=== PATIENT | male | born 1960 | race Caucasian/White ===

== ENCOUNTER → 2016-10-14 | Day surgery (SDC) | payer BC ==
[~2016-10-14] MED LIST: ALPRAZolam 0.25 MG TAB PO PRN; ALPRAZolam 0.5 MG TAB PO PRN; ASPIRIN 325 MG TAB PO STA; ATORVASTATIN 80 MG TAB PO STA; NITROGLYCERIN SL TABS 0.4 MG TAB SUBLINGUAL PRN; SODIUM CHLORIDE 0.9% 1,000 ML in EMPTY BAG 1 BAG IV ONE
== END | disposition home or self-care (01) ==
LOC: CATHCVL 06:39
PROVIDERS: ATTEND Internal Medicine Interventional Cardiology
DX: I25.10 Atherosclerotic heart disease of native coronary artery without angina pectoris (principal); Z53.8 Procedure and treatment not carried out for other reasons; E78.5 Hyperlipidemia, unspecified; I10 Essential (primary) hypertension; F32.9 Major depressive disorder, single episode, unspecified; E78.00 Pure hypercholesterolemia, unspecified; Z79.02 Long term (current) use of antithrombotics/antiplatelets; Z79.82 Long term (current) use of aspirin; Z79.899 Other long term (current) drug therapy; Z82.49 Family history of ischemic heart disease and other diseases of the circulatory system; Z88.2 Allergy status to sulfonamides; Z95.1 Presence of aortocoronary bypass graft

== ENCOUNTER 2016-10-25 10:04 | Day surgery (SDC) | payer BC ==
[~2016-10-25 10:04] MED LIST changes: -ALPRAZolam 0.25 MG TAB PO PRN; -ALPRAZolam 0.5 MG TAB PO PRN; -NITROGLYCERIN SL TABS 0.4 MG TAB SUBLINGUAL PRN
[2016-10-25 10:40] LABS: Basophils % (A) 1 %; CH 29.4; CHCM 33.8; Eosinophils # (A) 0.3 k/uL (0-0.7); Eosinophils % (A) 4 %; HCT 47.7 % (39.0-53.0); HDW 2.88; HGB 15.7 gm/dL (13.0-17.5); Luc # (Auto) 0.24; Luc % (Auto) 3; Lymphocytes # (A) 2.4 k/uL (1.0-4.8); Lymphocytes % (A) 27 %; MCH 28.6 pg (25.0-35.0); MCHC 32.8 g/dL (31.0-37.0); MCV 87.1 fL (80.0-100.0); Mean Platelet Volume 6.5; Monocytes # (A) 0.6 k/uL (0-1.0); Monocytes % (A) 7 %; Neutrophils # (A) 5.3 k/uL (1.3-7.7); Neutrophils % (A) 60 %; RBC 5.48 m/uL (4.30-5.90); RDW 14.4 % (11.5-15.5); WBC 8.9 k/uL (3.8-10.6); WBC (Perox) 8.97
[2016-10-25 10:54] LABS: Anion Gap 12 mmol/L; Blood Urea Nitrogen 14 mg/dL (9-20); Calcium 9.2 mg/dL (8.4-10.2); Carbon Dioxide 20 mmol/L (22-30); Chloride 113 mmol/L (98-107); Glucose 78 mg/dL (74-99); Non-African American GFR(MDRD) >60 (>60 ml/min/1.73 sqM); Potassium 4.6 mmol/L (3.5-5.1); Sodium 145 mmol/L (137-145)
[2016-10-25] MEDS ORDERED: LIDOCAINE 2% INJ 20 MG/ML (20 ML MDV) ONE (11:29)
[2016-10-25] MEDS ORDERED: MIDAZOLAM 2 MG/2 ML VIAL ONE (11:34)
[2016-10-25] MEDS ORDERED: MIDAZOLAM 2 MG/2 ML VIAL IVP ONE (11:41)
[2016-10-25] MEDS ORDERED: LIDOCAINE 2% INJ 20 MG/ML SQ ONE (11:42)
[2016-10-25] MEDS ORDERED: BIVALIRUDIN BOLUS 250 MG/50 ML IV ONE (12:16)
[2016-10-25] MEDS ORDERED: niCARdipine 25 MG/10 ML VIAL ONE (12:17)
[2016-10-25] MEDS ORDERED: SODIUM CHLORIDE 0.9% (PF) 10 ML VIAL ONE (12:17)
[2016-10-25] MEDS ORDERED: BIVALIRUDIN 250 MG in SODIUM CHLORIDE 0.9% 50 ML IV ONE (12:17)
[2016-10-25] MEDS: niCARdipine Syringe (1,000 mcg/10 mL) INTRACORON ONE ×3 (12:19→12:32)
[2016-10-25] MEDS: NITROGLYCERIN 1000MCG/10ML SYRINGE INTRACORON ONE ×2 (12:19→12:31)
[2016-10-25] MEDS ORDERED: IOHEXOL 350 MG/ML 100 ML BOTTLE INJ ONE (12:35)
[2016-10-25] MEDS ORDERED: CLOPIDOGREL 75 MG TAB ONE (12:36)
[2016-10-25] MEDS ORDERED: CLOPIDOGREL 75 MG TAB PO ONE (12:39)
[2016-10-25] MEDS ORDERED: ZOLPIDEM 5 MG TAB PO PRN (12:45)
[2016-10-25] MEDS ORDERED: SODIUM CHLORIDE 0.9% 1,000 ML IV SCH (12:45)
[2016-10-25] MEDS ORDERED: ATROPINE SULFATE 0.1 MG/ML 10ML SYRINGE IV PRN (12:45)
[2016-10-25] MEDS ORDERED: NITROGLYCERIN SL TABS 0.4 MG TAB SUBLINGUAL PRN (12:45)
[2016-10-25] MEDS ORDERED: RX INFO: IV CONTRAST WAS GIVEN 1 EACH MISC MISCELLANE PRN (12:45)
[2016-10-25] MEDS ORDERED: MAG HYDROX/AL HYDROX/SIMETH 30 ML CUP PO PRN (12:45)
[2016-10-25 15:37] VITALS: BMI 29.1
--- NOTE | 2016-10-25 19:15 | CC ---
DATE OF SERVICE: October 25, 2016. Performing physician: Jung Byrne M.D., parts processor. PROCEDURE PERFORMED: 1. Selective left and right coronary angiogram. 2. SVG angiogram x3 as it will described later in this report. 3. Left internal mammary artery angiogram. 4. Right internal mammary artery angiogram. 5. Successful stenting of the SVG to ramus intermedius using 4.0 x 26 mm Xience HOLLEY with a good angiographic results. INDICATION: This is a pleasant 56-year-old gentleman who is known to have coronary artery disease where in July 2016, he underwent coronary artery bypass grafting x5, where he received ROLON to LAD, DEMETRI to diagonal, SVG to ramus intermedius, SVG to left circumflex and SVG to RCA, continues to have chest discomfort consistent with angina. He was admitted today to undergo a heart catheterization. APPROACH: Right common femoral artery. COMPLICATIONS: None. Level of sedation: Moderate with a long of sedation of 45 minutes. PROCEDURE DESCRIPTION: After obtaining informed consent, the patient was brought to the cardiac clinical laboratory manager. The right common femoral artery was cannulated using micropuncture technique. Micropuncture wire passed easily. Then I placed 6 Gibraltarian sheath in the right common femoral artery. Subsequently I did selective left and right coronary angiogram using JL4 and JR4 catheters. After that, I did SVG angiogram to the right coronary artery using the JR4 catheter. SVG to ramus intermedius was performed also using the JR4 catheter. The SVG to left circumflex was performed using an Amplatzer 1 catheter. The ROLON and DEMETRI angiogram was performed using JR4 catheters. After that, I decided to pursue with intervention on the SVG to ramus intermedius. Please see separate paragraph for that. SELECTIVE CORONARY ANGIOGRAM: 1. The left main is a moderate caliber vessel with disease in the mid shaft appeared to be in the range of 30%. The left main distally bifurcates into the left circumflex and left anterior descending artery. 2. The left circumflex is a large-caliber vessel and it is a nondominant vessel. The proximal left circumflex appeared to be diseased in the range of 50%. The mid left circumflex has another lesion seems to be in the range of 50%. The left circumflex gives rises in the midportion into the first obtuse marginal branch, which seems to be a small-caliber vessel with severe disease in the proximal portion. 3. The ramus intermedius has severe disease in the ostium and proximal portion with competitive flow was seen from the SVG. 4. Left anterior descending artery: The proximal LAD appeared to be subtotally occluded with competitive flow from the left internal mammary artery. 5. The right coronary artery is a large-caliber vessel. It is a dominant vessel and with severe disease appeared to be in the range of 80% in the midportion. CORONARY BYPASS ANGIOGRAM: 1. The SVG to RCA is patent. 2. The SVG ramus intermedius has severe disease in the ostium and proximal portion appeared to be in the range of 80%. 3. The SVG to left circumflex is occluded. 4. The ROLON to LAD is patent. 5. The DEMETRI to diagonal is patent as well. PCI of the SVG to ramus intermedius: Anticoagulation was initiated using Angiomax. Subsequently, I did engage the SVG to ramus intermedius using an LCB catheter. After that, I wired that graft using a Whisper wire. After that, I did direct stenting on the lesion using 4.0 x 26 mm Xience HOLLEY, where the stent was positioned under fluoroscopy guidance and then it was deployed under its 12 atmospheres for 20 seconds. After that I post dilated the proximal portion using a 3.75 x 15 mm NC balloon which was inflated in the proximal anastomosis of the graft. The following angiogram showed good angiographic result with a good flow in the graft and good flow in the andreafski arteries. The procedure was completed without any complication. CONCLUSION: 1. Severe triple-vessel coronary artery disease as described above. 2. Patent saphenous vein graft to right coronary artery. 3. Severe disease involving the saphenous vein graft to ramus intermedius, which is stented. 4. Occluded saphenous vein graft to the left circumflex. 5. Patent right internal mammary artery to diag. 6. Patent left internal mammary artery to left anterior descending coronary artery. 7. Successful stenting of the saphenous vein graft to ramus intermedius using 4.0 x 26 mm Xience HOLLEY with a good angiographic results. POSTPROCEDURE MANAGEMENT: 1. Dual antiplatelet therapy. 2. Risk factor modification. 3. Follow up with the patient.
[2016-10-25] MEDS ORDERED: ATORVASTATIN 80 MG TAB PO SCH (21:00)
[2016-10-25] MEDS ORDERED: METOPROLOL TARTRATE 50 MG TAB PO SCH (21:00)
[2016-10-25] MEDS ORDERED: HYDROcodone/APAP 5-325MG 1 EACH TAB PO PRN (21:28)
[2016-10-25] MEDS: ALPRAZolam 0.5 MG TAB PO PRN ×2 (23:07→23:08)
[2016-10-26 04:10] VITALS: TEMP 97.4
[2016-10-26 07:10] LABS: Basophils # (A) 0.1 k/uL (0-0.2); Basophils % (A) 1 %; CH 29.2; CHCM 33.1; Eosinophils # (A) 0.4 k/uL (0-0.7); Eosinophils % (A) 4 %; HCT 47.4 % (39.0-53.0); HDW 2.81; HGB 15.6 gm/dL (13.0-17.5); Luc % (Auto) 2; Lymphocytes # (A) 2.7 k/uL (1.0-4.8); Lymphocytes % (A) 30 %; MCH 29.1 pg (25.0-35.0); MCHC 32.8 g/dL (31.0-37.0); MCV 88.6 fL (80.0-100.0); Mean Platelet Volume 6.6; Monocytes # (A) 0.6 k/uL (0-1.0); Monocytes % (A) 7 %; Neutrophils % (A) 56 %; RBC 5.36 m/uL (4.30-5.90); RDW 14.6 % (11.5-15.5); WBC (Perox) 9.68
[2016-10-26 07:33] LABS: Anion Gap 11 mmol/L; Blood Urea Nitrogen 11 mg/dL (9-20); Calcium 8.9 mg/dL (8.4-10.2); Carbon Dioxide 22 mmol/L (22-30); Chloride 112 mmol/L (98-107); Glucose 78 mg/dL (74-99); Non-African American GFR(MDRD) >60 (>60 ml/min/1.73 sqM); Potassium 4.5 mmol/L (3.5-5.1); Sodium 145 mmol/L (137-145)
[2016-10-26] MEDS ORDERED: LISINOPRIL 2.5 MG TAB PO SCH (09:00)
[2016-10-26] MEDS ORDERED: CLOPIDOGREL 75 MG TAB PO SCH (09:00)
[2016-10-26] MEDS ORDERED: ASPIRIN 325 MG TAB PO SCH (09:00)
[2016-10-26 09:59] VITALS: BP 120/80; PULSE 77; RESP 18
--- NOTE | 2016-10-27 09:45 | DS ---
DATE OF ADMISSION: 10/25/2016 DATE OF DISCHARGE: 10/26/2016 BRIEF HISTORY: This is a pleasant 56-year-old male patient with known history of coronary artery disease and prior coronary artery bypass grafting where in July 2016 he received ROLON to LAD, DEMETRI to diagonal, SVG to RCA, SVG to ramus intermedius and SVG to left circumflex, continues to have chest discomfort in spite of maximized medical treatment. He was admitted to the hospital yesterday and underwent a heart catheterization from right groin approach, which showed patent to LAD, patent DEMETRI to diagonal, patent SVG to RCA, and occluded SVG to the left circumflex and severe disease involving the SVG to ramus intermedius. The patient underwent successful stenting of the SVG to ramus intermedius with a good angiographic result and without any complication. On followup with the patient today, he seems to be doing good. He has mild episodes of chest discomfort this still runner. The right groin is soft and nontender and without any bruises. The patient is going to be discharged home on dual antiplatelet therapy and I will follow up with the patient as an outpatient in the office.
== END 2016-10-26 12:11 | disposition home or self-care (01) ==
LOC: CATHCVL 10:04 → 6SEL 12:41 → CATHCVL 10-26 12:11
PROVIDERS: ATTEND Internal Medicine Interventional Cardiology
DX: I25.710 Atherosclerosis of autologous vein coronary artery bypass graft(s) with unstable angina pectoris (principal); I10 Essential (primary) hypertension; E78.5 Hyperlipidemia, unspecified; Z82.49 Family history of ischemic heart disease and other diseases of the circulatory system; E78.00 Pure hypercholesterolemia, unspecified; Z95.1 Presence of aortocoronary bypass graft; Z79.02 Long term (current) use of antithrombotics/antiplatelets; Z79.82 Long term (current) use of aspirin; Z79.899 Other long term (current) drug therapy; Z88.2 Allergy status to sulfonamides
CPT/HCPCS: 93455; 80048 ×2; 85025 ×2; C9604; C1760; C1769 ×4; C1887; C1725; C1894; C1874; J2001; J2250; Q9967; J0583

== ENCOUNTER 2017-02-01 11:03 | Observation (INO) | payer BC ==
--- NOTE | 2017-02-01 11:24 | ED ---
Chest Pain HPI - General Stated Complaint: Chest Pain Time Seen by Provider: 02/01/17 11:03 Source: patient, EMS, RN notes reviewed, old records reviewed Mode of arrival: EMS - History of Present Illness Initial Comments: This is a 56-year-old male with a history of bypass surgery and a failure with stent placement all recent. He was at cardiac rehab today when he started feeling sharp left-sided chest pain or radiated down to his left flank area. He currently is much improved he denies any fevers chills nausea vomiting sweats. He was brought in by EMS for evaluation. MD Complaint: chest pain - Related Data Home Medications Medication Instructions Recorded Confirmed ALPRAZolam [Xanax] 0.5 - 1 mg PO BID 02/01/17 02/01/17 Metoprolol Tartrate [Lopressor] 50 mg PO DAILY 02/01/17 02/01/17 Nitroglycerin 0.4 mg SL DAILY PRN 02/01/17 02/01/17 Nitroglycerin 0.2MG/Hr Patch 1 patch TRANSDERM Q24H 02/01/17 02/01/17 [Nitro-Dur 0.2MG/Hr Patch] amLODIPine [Norvasc] 2.5 mg PO DAILY 02/01/17 02/01/17 Previous Rx's Medication Instructions Recorded Aspirin 325 mg PO DAILY #30 tab 07/26/16 Atorvastatin [Lipitor] 80 mg PO HS #60 tab 07/26/16 Clopidogrel [Plavix] 75 mg PO DAILY #60 tab 07/26/16 Lisinopril [Zestril] 2.5 mg PO DAILY #60 tab 07/26/16 Allergies Allergy/AdvReac Type Severity Reaction Status Date / Time Sulfa (Sulfonamide AdvReac Vomiting Verified 02/01/17 11:39 Antibiotics) Review of Systems ROS Statement: Those systems with pertinent positive or pertinent negative responses have been documented in the HPI. ROS Other: All systems not noted in ROS Statement are negative. EKG Findings - EKG Results: EKG: interpreted by BASILIO, sinus rhythm (Sinus rhythm rate 74. Avoid 54 QRS duration 92 QT/QTC of 390/432 nonspecific T-wave configuration.) Past Medical History Past Medical History: Coronary Artery Disease (CAD), Chest Pain / Angina, Hyperlipidemia, Hypertension Additional Past Medical History / Comment(s): anxiety, HX OF COLON POLYPS, tremors, DIMINISHED VISION LEFT EYE History of Any Multi-Drug Resistant Organisms: None Reported Past Surgical History: Coronary Bypass/CABG, Heart Catheterization, Heart Catheterization With Stent, Tonsillectomy Additional Past Surgical History / Comment(s): STATES CABG X5, left eye removed and some muscle removed AND THEN REPLACED Past Anesthesia/Blood Transfusion Reactions: No Reported Reaction Date of Last Stent Placement:: 10/25/16 Past Psychological History: Anxiety, Depression Smoking Status: Never smoker Past Alcohol Use History: None Reported Past Drug Use History: None Reported - Past Family History Father Family Medical History: No Reported History Mother Family Medical History: No Reported History General Exam - General Exam Comments Initial Comments: This is a well-developed well-nourished awake alert oriented times 3 male General appearance: alert, in no apparent distress Head exam: Present: atraumatic, normocephalic, normal inspection Eye exam: Present: normal appearance, PERRL, EOMI. Absent: scleral icterus, conjunctival injection, periorbital swelling ENT exam: Present: normal exam, mucous membranes moist Neck exam: Present: normal inspection. Absent: tenderness, meningismus, lymphadenopathy Respiratory exam: Present: normal lung sounds bilaterally, chest wall tenderness (Reproducible tenderness palpation). Absent: respiratory distress, wheezes, rales, rhonchi, stridor Cardiovascular Exam: Present: regular rate, normal rhythm, normal heart sounds. Absent: systolic murmur, diastolic murmur, rubs, gallop, clicks GI/Abdominal exam: Present: soft, normal bowel sounds. Absent: distended, tenderness, guarding, rebound, rigid Extremities exam: Present: normal inspection, full ROM, normal capillary refill. Absent: tenderness, pedal edema, joint swelling, calf tenderness Back exam: Present: normal inspection Neurological exam: Present: alert, oriented X3, CN II-XII intact Psychiatric exam: Present: normal affect, normal mood Skin exam: Present: warm, dry, intact, normal color. Absent: rash Course Vital Signs 02/01/17 02/01/17 02/01/17 11:38 13:11 13:30 Temperature 97.5 F L Pulse Rate 72 93 93 Respiratory 16 18 18 Rate Blood Pressure 114/71 114/71 114/71 O2 Sat by Pulse 97 95 96 Oximetry 02/01/17 15:11 Temperature Pulse Rate 66 Respiratory 18 Rate Blood Pressure 110/66 O2 Sat by Pulse 96 Oximetry Chest Pain MDM - MDM Patient persists in having chest pain is some really had with his prior cardiac events. Will be admitted Disposition Clinical Impression: Unstable angina pectoris, Atypical chest pain Disposition: ADMITTED IP TO THIS HOSP Condition: Stable Referrals: Lidya Gonzaelz III, MD [Primary Care Provider] - 1-2 days
[2017-02-01 11:50] LABS: Basophils % (A) 0 %; CH 30.5; CHCM 34.4; Eosinophils # (A) 0.1 k/uL (0-0.7); Eosinophils % (A) 2 %; HCT 47.6 % (39.0-53.0); HDW 3.04; HGB 16.4 gm/dL (13.0-17.5); Luc # (Auto) 0.13; Luc % (Auto) 2; Lymphocytes # (A) 1.8 k/uL (1.0-4.8); Lymphocytes % (A) 20 %; MCH 30.7 pg (25.0-35.0); MCHC 34.4 g/dL (31.0-37.0); MCV 89.4 fL (80.0-100.0); Mean Platelet Volume 6.9; Monocytes # (A) 0.5 k/uL (0-1.0); Monocytes % (A) 5 %; Neutrophils # (A) 6.2 k/uL (1.3-7.7); Neutrophils % (A) 71 %; RBC 5.33 m/uL (4.30-5.90); RDW 14.2 % (11.5-15.5); WBC 8.7 k/uL (3.8-10.6); WBC (Perox) 8.33
[2017-02-01 12:01] LABS: Prothrombin Time 10.4 sec (9.0-12.0)
[2017-02-01 12:02] LABS: ALT 43 U/L (21-72); AST 22 U/L (17-59); Alkaline Phosphatase 73 U/L (38-126); Anion Gap 11 mmol/L; Blood Urea Nitrogen 18 mg/dL (9-20); Calcium 9.4 mg/dL (8.4-10.2); Carbon Dioxide 22 mmol/L (22-30); Chloride 109 mmol/L (98-107); Glucose 128 mg/dL (74-99); Magnesium 1.9 mg/dL (1.6-2.3); Non-African American GFR(MDRD) >60 (>60 ml/min/1.73 sqM); Potassium 4.3 mmol/L (3.5-5.1); Sodium 142 mmol/L (137-145); Total Protein 7.1 g/dL (6.3-8.2)
[2017-02-01 12:10] LABS: Creatine Kinase 46 U/L (55-170)
[2017-02-01 12:24] LABS: Creatine Kinase MB 0.8 ng/mL (0.0-2.4); Troponin I <0.012 ng/mL (0.000-0.034)
--- NOTE | 2017-02-01 13:16 | XR ---
EXAMINATION TYPE: XR chest 2V DATE OF EXAM: 02/01/2017 1:02 PM COMPARISON: Prior chest x-ray 25 July 2016 HISTORY: Chest pain TECHNIQUE: Frontal and lateral views of the chest are obtained. FINDINGS: There is no focal air space opacity, pleural effusion, or pneumothorax seen. The cardiac silhouette size is within normal limits. There are overlying cardiac leads. Patient is post median st ernotomy. The osseous structures are intact. IMPRESSION: No acute cardiopulmonary process.
[2017-02-01] MEDS ORDERED: KETOROLAC 30 MG/ML 1 ML VIAL IVP STA (13:18)
[2017-02-01] MEDS ORDERED: HEPARIN SODIUM,PORCINE 5,000 UNIT/ML 1 ML VIAL IV ONE (15:33)
[2017-02-01] MEDS ORDERED: NITROGLYCERIN SL TABS 0.4 MG TAB SUBLINGUAL PRN (15:33)
[2017-02-01] MEDS ORDERED: HEPARIN SODIUM,PORCINE/D5W PMX 25,000 UNIT in DEXTROSE/WATER 1 500ML.BAG IV SCH (15:45)
[2017-02-01] MEDS ORDERED: SODIUM CHLORIDE 0.9% 1,000 ML IV SCH (15:45)
[2017-02-01 17:33] LABS: Creatine Kinase 228 U/L (55-170)
[2017-02-01 17:46] LABS: Creatine Kinase MB 0.9 ng/mL (0.0-2.4); Troponin I <0.012 ng/mL (0.000-0.034)
[2017-02-01] MEDS ORDERED: ATORVASTATIN 80 MG TAB PO SCH (21:00)
[2017-02-01] MEDS ORDERED: TEMAZEPAM 15 MG CAP PO PRN (21:27)
[2017-02-01] MEDS ORDERED: HYDROcodone/APAP 5-325MG 1 EACH TAB PO PRN (21:27)
[2017-02-01] MEDS: NITROGLYCERIN OINT 1 INCH/GM PACKET TOPICAL SCH (21:35)
[2017-02-01] MEDS: ALPRAZolam 0.5 MG TAB PO SCH (21:35)
[2017-02-01 23:37] LABS: Creatine Kinase 26 U/L (55-170)
--- NOTE | 2017-02-01 23:38 | HP ---
DATE OF SERVICE: 02/01/2017 CHIEF COMPLAINT: Chest pain. HISTORY OF PRESENT ILLNESS: This 56-year-old gentleman with a past medical history of multiple medical problems, including CAD, history of hypertension, hyperlipidemia, history of sleep apnea, history of anxiety, history of CABG and stent, history of anxiety and depression, being followed Dr. Gonzalez in the outpatient setting had a complicated recent cardiac history. The patient is also receiving cardiac rehab. The patient was feeling sharp left-sided chest pains and the patient came to [facility] and admitted for further evaluation and treatment. The patient had a history of cardiac cath and stent as mentioned earlier. The patient also complaining of increased shortness of breath while taking garbage outside rather than doing the rehab. There is no history of any fever, rigors, chills. No history of headache, loss of consciousness, seizures. PAST MEDICAL HISTORY: History of CAD, history of hypertension, hyperlipidemia, sleep apnea, history of anxiety, history of CAD and CABG, history of anxiety and depression. Medications prior to admission include home medications are: 1. Lopressor 50 mg p.o. daily. 2. Norvasc 2.5 mg daily. 3. Nitroglycerin 0.2 q.24h. and nitro 0.4 sublingual p.r.n. 4. Zestril 2.5 mg. 5. Plavix 75 mg p.o. daily. 6. Lipitor 80 mg daily. 7. Aspirin 325 mg daily. 8. Xanax 0.5 mg p.o. b.i.d. ALLERGIES ARE SULFA. FAMILY HISTORY: No history of any heart disease, strokes in the family. SOCIAL HISTORY: No history of smoking. occasional alcohol intake. REVIEW OF SYSTEMS: ENT: No diminishing hearing or diminished vision. CARDIOVASCULAR: As mentioned earlier. RESPIRATORY: As mentioned earlier. GI: No nausea. : No dysuria. NERVOUS: No numbness or weakness. ALLERGY/IMMUNOLOGY: No asthma or hay fever. MUSCULOSKELETAL: As mentioned earlier. HEMATOLOGY/ONCOLOGY: No history of anemia. ENDOCRINE: No history of diabetes, hypothyroidism. CONSTITUTIONAL: As mentioned earlier. DERMATOLOGY: Negative. RHEUMATOLOGY: Negative. PSYCHIATRY: As mentioned earlier. PHYSICAL EXAMINATION: Alert and oriented x3. Pulse 77, blood pressure 120/66, respirations 18, temperature 98 degrees, pulse ox 97% on 2L. HEENT: Conjunctivae normal. NECK: No jugular venous distension. CARDIOVASCULAR: S1 and S2 muffled. RESPIRATORY: Breath sounds diminished at the bases. No rhonchi. No crackles. ABDOMEN: Soft, nontender. No mass palpable. LEGS: No edema. No swelling. NERVOUS SYSTEM: Higher functions as mentioned earlier. Moves all 4 limbs. No focal motor or sensory deficits. LYMPHATIC: No lymphadenopathy in neck, axillae or groin. SKIN: No ulcers, rash or bleeding. LABS: CBC within normal limits. Chloride 109, glucose 128. Total creatinine kinase 228. ASSESSMENT: 1. Chest pain, possible unstable angina. 2. Rule out musculoskeletal pain. 3. Increased random blood sugar. 4. Increased creatine kinase with normal troponins. 5. History of coronary artery disease, coronary artery bypass grafting and stent. 6. History of hypertension. 7. History of sleep apnea. 8. History of anxiety. 9. History of polyps. 10. FULL CODE. RECOMMENDATIONS AND DISCUSSION: In this 56-year-old gentleman who presented with multiple complex medical issues, monitor the patient closely. Continue with the current medication, continue with symptomatic treatment. Cardiology consult to rule out myocardial infarction. Guarded prognosis. Further recommendations to follow.
[2017-02-01 23:50] LABS: Creatine Kinase MB 0.6 ng/mL (0.0-2.4); Troponin I <0.012 ng/mL (0.000-0.034)
[2017-02-02] MEDS: NITROGLYCERIN OINT 1 INCH/GM PACKET TOPICAL SCH ×2 (01:21→08:45)
[2017-02-02] MEDS ORDERED: HEPARIN SODIUM,PORCINE 5,000 UNIT/ML 1 ML VIAL IV PRN (01:29)
[2017-02-02 04:15] VITALS: RESP 16
[2017-02-02 08:21] LABS: Basophils # (A) 0.1 k/uL (0-0.2); Basophils % (A) 1 %; CH 30.5; CHCM 34.2; Eosinophils # (A) 0.4 k/uL (0-0.7); Eosinophils % (A) 4 %; HDW 3.05; HGB 15.5 gm/dL (13.0-17.5); Luc # (Auto) 0.12; Luc % (Auto) 1; Lymphocytes # (A) 2.1 k/uL (1.0-4.8); Lymphocytes % (A) 23 %; MCH 30.1 pg (25.0-35.0); MCHC 33.6 g/dL (31.0-37.0); MCV 89.8 fL (80.0-100.0); Mean Platelet Volume 7.1; Monocytes # (A) 0.5 k/uL (0-1.0); Monocytes % (A) 5 %; Neutrophils % (A) 66 %; RBC 5.13 m/uL (4.30-5.90); RDW 14.3 % (11.5-15.5); WBC 9.1 k/uL (3.8-10.6); WBC (Perox) 9.43
[2017-02-02] MEDS: ALPRAZolam 0.5 MG TAB PO SCH (08:45)
[2017-02-02] MEDS ORDERED: LISINOPRIL 2.5 MG TAB PO SCH (09:00)
[2017-02-02] MEDS ORDERED: METOPROLOL TARTRATE 50 MG TAB PO SCH (09:00)
[2017-02-02] MEDS ORDERED: CLOPIDOGREL 75 MG TAB PO SCH (09:00)
[2017-02-02] MEDS ORDERED: ASPIRIN 325 MG TAB PO SCH (09:00)
[2017-02-02] MEDS ORDERED: amLODIPine 2.5 MG TAB PO SCH (09:00)
[2017-02-02 09:02] LABS: Anion Gap 10 mmol/L; Blood Urea Nitrogen 12 mg/dL (9-20); Calcium 8.6 mg/dL (8.4-10.2); Carbon Dioxide 22 mmol/L (22-30); Chloride 111 mmol/L (98-107); Cholesterol 148 mg/dL (<200); Glucose 95 mg/dL (74-99); HDL Cholesterol 30 mg/dL (40-60); Non-African American GFR(MDRD) >60 (>60 ml/min/1.73 sqM); Potassium 4.1 mmol/L (3.5-5.1); Sodium 143 mmol/L (137-145); Triglycerides 214 mg/dL (<150)
--- NOTE | 2017-02-02 10:23 | CONS ---
DATE OF CONSULTATION: A 56-year-old male patient of Dr. Byrne who was in cardiac rehab when he had localized discomfort in the left chest that is prior to the left pectoral area lasting for a few minutes and he was immediately rushed to the hospital. However, he does complain of shortness of breath when he takes the garbage out, although he says during cardiac rehab he does quite well. Past history of coronary artery disease, status post coronary artery bypass grafting in 2015, occluded SVG noted in the cardiac catheterization in October and he underwent stenting of this. Past history of diabetes, hypertension, family history of CAD. REVIEW OF SYSTEMS: No fever, chills or rigors. No cough or expectoration. No nausea, vomiting or diarrhea. No hematuria or dysuria. No strokes or seizure. No skin lesions or musculoskeletal complaints. SOCIAL HISTORY: He is a nonsmoker. MEDICATIONS: He is on metoprolol tartrate 50 mg once daily and amlodipine. On examination, he is afebrile, 97.9 degrees Fahrenheit, pulse rate in the 60s. Blood pressure is normal. Head and neck exam is normal. No JVD, thyromegaly, or carotid bruits. Heart sounds S1, S2 normal moles or gallops. Breath sounds are normal. Lungs are clear on auscultation. Extremities are warm. Abdomen is soft, nontender. IMPRESSION: 1. Atypical chest discomfort with normal cardiac enzymes. I reviewed his labs. Is reviewed his ECG. ECG is normal. No ST segment abnormalities. LDL is 75. Electrolytes are normal. Hemoglobin is normal. 2. Known coronary artery disease, status post coronary artery bypass grafting in July 2016 and occluded SVG grafts in October 2016, status post coronary stenting. SUGGEST: Two-D echo and Doppler study today and then he will go home and see Dr. Byrne in about a week's time. His metoprolol tartrate should be switched to metoprolol succinate 50 mg in the morning.
--- NOTE | 2017-02-02 15:14 | DS ---
DATE OF ADMISSION: 02/01/2017 DATE OF DISCHARGE: DATE OF SERVICE: 02/03/2017 FINAL DIAGNOSES: 1. Chest pain, myocardial infarction ruled out, possibly musculoskeletal, possible unstable angina. 2. Increased random blood sugar. 3. Increased anion gap with normal troponins. 4. History of coronary artery disease, coronary artery bypass grafting and stents. 5. History of hypertension, essential. 6. History of sleep apnea. 7. History of anxiety, history of polyps. 8. FULL CODE. DISCHARGE DISPOSITION: The patient will be discharged in a stable condition with guarded prognosis. Cardiology cleared the patient for discharge. HISTORY OF PRESENT ILLNESS: This is a 56-year-old gentleman with a past medical history of multiple problems being followed by Dr. Gonzalez and Dr. Byrne in the outpatient setting, admitted with chest pain, myocardial infarction ruled out. Cardiology recommended outpatient followup. On exam, vitals are stable. CARDIOVASCULAR SYSTEM: S1, S2 muffled. ABDOMEN: Soft. NERVOUS SYSTEM: No focal deficit. DISCHARGE ADVICE: 1. Diet is cardiac. 2. Activity limited until followup. 3. Follow up with Dr. Byrne as advised. 4. Follow up with Dr. Gonzalez in 2 to 3 days. Medications will be: 1. Xanax 0.5 to 1 mg p.o. b.i.d. p.r.n. 2. Norvasc 2.5 mg daily. 3. Ecotrin 325 mg p.o. daily. 4. Lipitor 80 mg q.h.s. 5. Plavix 75 mg p.o. daily. 6. Imdur ER 30 mg p.o. daily. 7. Zestril 2.5 mg p.o. daily. 8. Lopressor 50 mg p.o. daily. 9. Nitro 0.4 sublingual p.r.n. Once again, the patient will be discharged in a stable condition with guarded prognosis.
[2017-02-02 15:24] VITALS: BMI 29.2
[2017-02-02 16:15] VITALS: BP 131/73; PULSE 77; TEMP 98
[2017-02-03] MEDS ORDERED: ISOSORBIDE MONONITRATE ER 30 MG TAB.ER.24H PO SCH (09:00)
--- NOTE | 2017-02-04 16:11 | ECHOF ---
Referral Reason:sob MEASUREMENTS -------- HEIGHT: 162.6 cm WEIGHT: 77.1 kg BP: 111/67 IVSd: 1.2 cm (0.6 - 1.1) LVIDd: 4.4 cm (3.9 - 5.3) LVPWd: 0.9 cm (0.6 - 1.1) IVSs: 1.3 cm LVIDs: 3.2 cm LVPWs: 1.2 cm Ao Diam: 3.0 cm (2.0 - 3.7) AV Cusp: 1.9 cm (1.5 - 2.6) LA Diam: 3.6 cm (2.7 - 3.8) MV EXCURSION: 18.829 mm (> 18.000) MV EF SLOPE: 108 mm/s (70 - 150) EPSS: 0.6 cm MV E Ron: 0.69 m/s MV DecT: 232 ms MV A Ron: 0.68 m/s MV E/A Ratio: 1.02 RAP: 5.00 mmHg RVSP: 12.42 mmHg FINDINGS -------- Sinus rhythm. This was a technically good study. There is mild concentric left ventricular hypertrophy. Overall left ventricular systolic function is low-normal with, an EF between 50 - 55 %. There is paradoxical/dysynergic septal motion consistent with post-operative status. The right ventricle is normal in size and function. The left atrium is normal in size. The right atrium is normal in size. The aortic valve is trileaflet, and appears structurally normal. No aortic stenosis or regurgitation. There is trace mitral regurgitation. Trace tricuspid regurgitation present. The right ventricular systolic pressure, as measured by Doppler, is 12.42mmHg. Pulmonic valve appears structurally normal. The aortic root size is normal. The pericardium is normal. CONCLUSIONS -------- 1. Sinus rhythm. 2. There is trace mitral regurgitation. 3. Trace tricuspid regurgitation present. 4. The right ventricular systolic pressure, as measured by Doppler, is 12.42mmHg. 5. Pulmonic valve appears structurally normal. 6. The aortic root size is normal. 7. The pericardium is normal. 8. This was a technically good study. 9. There is mild concentric left ventricular hypertrophy. 10. Overall left ventricular systolic function is low-normal with, an EF between 50 - 55 %. 11. There is paradoxical/dysynergic septal motion consistent with post-operative status. 12. The right ventricle is normal in size and function. 13. The left atrium is normal in size. 14. The right atrium is normal in size. 15. The aortic valve is trileaflet, and appears structurally normal. No aortic stenosis or regurgitation. ACCOUNTS PAYABLE COORDINATOR: Viktoria Gann RDCS
== END 2017-02-02 17:25 | disposition home or self-care (01) ==
LOC: EC 11:03 → 3OBS 15:33
PROVIDERS: ADMIT Internal Medicine; ATTEND Internal Medicine
DX: R07.89 Other chest pain (principal); R06.02 Shortness of breath; R73.9 Hyperglycemia, unspecified; R74.8 Abnormal levels of other serum enzymes; I25.10 Atherosclerotic heart disease of native coronary artery without angina pectoris; Z95.5 Presence of coronary angioplasty implant and graft; Z95.1 Presence of aortocoronary bypass graft; E78.5 Hyperlipidemia, unspecified; I10 Essential (primary) hypertension; G47.30 Sleep apnea, unspecified; F41.9 Anxiety disorder, unspecified; F32.9 Major depressive disorder, single episode, unspecified; Z79.899 Other long term (current) drug therapy; H54.62 Unqualified visual loss, left eye, normal vision right eye; Z88.2 Allergy status to sulfonamides; Z79.02 Long term (current) use of antithrombotics/antiplatelets; Z79.82 Long term (current) use of aspirin
CPT/HCPCS: 36415; 93005; 93306; 85379; 83880; 80061; 80053; 80048; 82550; 82553; 83735; 84484; 85025 ×2; 85610; 85730 ×2; 71020; 99285; 96374; 96376; 96375; G0378 ×2; J1644 ×3; J1885

== ENCOUNTER 2017-09-26 15:45 | Emergency (ER) | payer BC ==
[2017-09-26 15:52] VITALS: RESP 18
--- NOTE | 2017-09-26 16:02 | ED ---
General Adult HPI - General Chief complaint: Chest Pain Stated complaint: chest pain Time Seen by Provider: 09/26/17 15:56 Source: patient, EMS, RN notes reviewed, old records reviewed Mode of arrival: EMS Limitations: no limitations - History of Present Illness Initial comments: This is a 57-year-old male to the ER for evaluation regarding chest pain today. Patient has history of CABG, significant history of heart disease with known blockage. Patient coming at her family doctor for evaluation regarding chest pain. Patient states with this and Dr. macedo for normal follow-up. Patient began experiencing chest pain did take nitro which improved his chest pain. Patient denies recent fever or cough or congestion, is currently states that he is chest pain-free. No shortness of breath. Patient was sent to ER by primary care physician for evaluation of possibly abnormal EKG - Related Data Home Medications Medication Instructions Recorded Confirmed ALPRAZolam [Xanax] 0.5 - 1 mg PO BID 02/01/17 09/26/17 Metoprolol Tartrate [Lopressor] 50 mg PO DAILY 02/01/17 09/26/17 Nitroglycerin 0.4 mg SL DAILY PRN 02/01/17 09/26/17 amLODIPine [Norvasc] 2.5 mg PO DAILY 02/01/17 09/26/17 Nitroglycerin 0.2MG/Hr Patch 1 patch TRANSDERM Q24H 09/26/17 09/26/17 [Nitro-Dur 0.2MG/Hr Patch] Previous Rx's Medication Instructions Recorded Aspirin 325 mg PO DAILY #30 tab 07/26/16 Atorvastatin [Lipitor] 80 mg PO HS #60 tab 07/26/16 Clopidogrel [Plavix] 75 mg PO DAILY #60 tab 07/26/16 Lisinopril [Zestril] 2.5 mg PO DAILY #60 tab 07/26/16 Allergies Allergy/AdvReac Type Severity Reaction Status Date / Time Sulfa (Sulfonamide AdvReac Vomiting Verified 09/26/17 16:18 Antibiotics) Review of Systems ROS Statement: Those systems with pertinent positive or pertinent negative responses have been documented in the HPI. ROS Other: All systems not noted in ROS Statement are negative. Past Medical History Past Medical History: Coronary Artery Disease (CAD), Chest Pain / Angina, Hyperlipidemia, Hypertension, Sleep Apnea/CPAP/BIPAP Additional Past Medical History / Comment(s): anxiety, colon polyps-neg, tremors , diminished vison lt eye. no cpap used. History of Any Multi-Drug Resistant Organisms: None Reported Past Surgical History: Coronary Bypass/CABG, Heart Catheterization, Heart Catheterization With Stent, Tonsillectomy Additional Past Surgical History / Comment(s): STATES CABG X5, left eye sx " they took the eye out,removed some muscle and put eye back in- sx not sucessfull ". Past Anesthesia/Blood Transfusion Reactions: No Reported Reaction Date of Last Stent Placement:: 10/25/16 Past Psychological History: Anxiety, Depression Smoking Status: Never smoker Past Alcohol Use History: None Reported Past Drug Use History: None Reported - Past Family History Father Family Medical History: No Reported History Mother Family Medical History: No Reported History General Exam Limitations: no limitations General appearance: alert, in no apparent distress Head exam: Present: atraumatic, normocephalic, normal inspection Eye exam: Present: normal appearance, PERRL, EOMI. Absent: scleral icterus, conjunctival injection, periorbital swelling ENT exam: Present: normal exam, mucous membranes moist Neck exam: Present: normal inspection. Absent: tenderness, meningismus, lymphadenopathy Respiratory exam: Present: normal lung sounds bilaterally. Absent: respiratory distress, wheezes, rales, rhonchi, stridor Cardiovascular Exam: Present: regular rate, normal rhythm, normal heart sounds. Absent: systolic murmur, diastolic murmur, rubs, gallop, clicks GI/Abdominal exam: Present: soft, normal bowel sounds. Absent: distended, tenderness, guarding, rebound, rigid Extremities exam: Present: normal inspection, full ROM, normal capillary refill. Absent: tenderness, pedal edema, joint swelling, calf tenderness Back exam: Present: normal inspection Neurological exam: Present: alert, oriented X3, CN II-XII intact Psychiatric exam: Present: normal affect, normal mood Skin exam: Present: warm, dry, intact, normal color. Absent: rash Course Vital Signs 09/26/17 09/26/17 09/26/17 15:48 16:25 16:55 Temperature 97.3 F L Pulse Rate 69 70 74 Respiratory 18 Rate Blood Pressure 163/101 145/100 130/85 O2 Sat by Pulse 96 97 97 Oximetry 09/26/17 17:41 Temperature 97.4 F L Pulse Rate 78 Respiratory 18 Rate Blood Pressure 137/85 O2 Sat by Pulse 98 Oximetry - Reevaluation(s) Reevaluation #1: Patient states he is without chest pain, at this point he is not want to stay in the hospital if studies are negative EKG Findings - EKG Comments: EKG Findings:: EKG shows normal sinus rhythm rate of 70, ME 154, QRS 84, QTc 436 , no ST elevation is appreciated Medical Decision Making - Medical Decision Making 57 male the ER for evaluation regarding possible normal EKG and chest pain. Patient at this point states he has no symptoms no pain, recent hospital admission or chest pain and he does not want to [employer] currently. Patient's troponin and EKG are negative. Issues discharged home - Lab Data Result diagrams: 09/26/17 16:04 09/26/17 16:04 Lab Results 09/26/17 09/26/17 09/26/17 Range/Units 16:04 16:04 16:04 WBC 11.8 H (3.8-10.6) k/uL RBC 5.61 (4.30-5.90) m/uL Hgb 16.7 (13.0-17.5) gm/dL Hct 51.6 (39.0-53.0) % MCV 91.9 (80.0-100.0) fL MCH 29.7 (25.0-35.0) pg MCHC 32.3 (31.0-37.0) g/dL RDW 14.7 (11.5-15.5) % Plt Count 262 (150-450) k/uL Neutrophils % 67 % Lymphocytes % 23 % Monocytes % 6 % Eosinophils % 1 % Basophils % 1 % Neutrophils # 7.9 H (1.3-7.7) k/uL Lymphocytes # 2.7 (1.0-4.8) k/uL Monocytes # 0.8 (0-1.0) k/uL Eosinophils # 0.2 (0-0.7) k/uL Basophils # 0.1 (0-0.2) k/uL PT (9.0-12.0) sec INR (<1.2) APTT (22.0-30.0) sec Sodium 140 (137-145) mmol/L Potassium 4.5 (3.5-5.1) mmol/L Chloride 102 (98-107) mmol/L Carbon Dioxide 29 (22-30) mmol/L Anion Gap 9 mmol/L BUN 14 (9-20) mg/dL Creatinine 1.10 (0.66-1.25) mg/dL Est GFR (MDRD) Af Amer >60 (>60 ml/min/1.73 sqM) Est GFR (MDRD) Non-Af >60 (>60 ml/min/1.73 sqM) Glucose 87 (74-99) mg/dL Calcium 9.6 (8.4-10.2) mg/dL Magnesium 1.8 (1.6-2.3) mg/dL Total Bilirubin 0.6 (0.2-1.3) mg/dL AST 18 (17-59) U/L ALT 47 (21-72) U/L Alkaline Phosphatase 78 (38-126) U/L Total Creatine Kinase 35 L (55-170) U/L CK-MB (CK-2) 0.7 (0.0-2.4) ng/mL CK-MB (CK-2) Rel Index 2.0 Troponin I <0.012 (0.000-0.034) ng/mL Total Protein 6.9 (6.3-8.2) g/dL Albumin 4.0 (3.5-5.0) g/dL Lipase 95 (23-300) U/L 09/26/17 Range/Units 16:04 WBC (3.8-10.6) k/uL RBC (4.30-5.90) m/uL Hgb (13.0-17.5) gm/dL Hct (39.0-53.0) % MCV (80.0-100.0) fL MCH (25.0-35.0) pg MCHC (31.0-37.0) g/dL RDW (11.5-15.5) % Plt Count (150-450) k/uL Neutrophils % % Lymphocytes % % Monocytes % % Eosinophils % % Basophils % % Neutrophils # (1.3-7.7) k/uL Lymphocytes # (1.0-4.8) k/uL Monocytes # (0-1.0) k/uL Eosinophils # (0-0.7) k/uL Basophils # (0-0.2) k/uL PT 10.6 (9.0-12.0) sec INR 1.1 (<1.2) APTT 23.6 (22.0-30.0) sec Sodium (137-145) mmol/L Potassium (3.5-5.1) mmol/L Chloride (98-107) mmol/L Carbon Dioxide (22-30) mmol/L Anion Gap mmol/L BUN (9-20) mg/dL Creatinine (0.66-1.25) mg/dL Est GFR (MDRD) Af Amer (>60 ml/min/1.73 sqM) Est GFR (MDRD) Non-Af (>60 ml/min/1.73 sqM) Glucose (74-99) mg/dL Calcium (8.4-10.2) mg/dL Magnesium (1.6-2.3) mg/dL Total Bilirubin (0.2-1.3) mg/dL AST (17-59) U/L ALT (21-72) U/L Alkaline Phosphatase (38-126) U/L Total Creatine Kinase (55-170) U/L CK-MB (CK-2) (0.0-2.4) ng/mL CK-MB (CK-2) Rel Index Troponin I (0.000-0.034) ng/mL Total Protein (6.3-8.2) g/dL Albumin (3.5-5.0) g/dL Lipase (23-300) U/L - Radiology Data Radiology results: report reviewed (Chest x-ray is negative), image reviewed Disposition Clinical Impression: Unstable angina pectoris, Chest pain Disposition: HOME SELF-CARE Condition: Good Instructions: Chest Pain (ED) Referrals: Lidya Gonzalez III, MD [Primary Care Provider] - 1-2 days
[2017-09-26 16:38] LABS: Basophils # (A) 0.1 k/uL (0-0.2); Basophils % (A) 1 %; Eosinophils # (A) 0.2 k/uL (0-0.7); Eosinophils % (A) 1 %; HCT 51.6 % (39.0-53.0); HGB 16.7 gm/dL (13.0-17.5); Lymphocytes # (A) 2.7 k/uL (1.0-4.8); Lymphocytes % (A) 23 %; MCH 29.7 pg (25.0-35.0); MCHC 32.3 g/dL (31.0-37.0); MCV 91.9 fL (80.0-100.0); Mean Platelet Volume 7.1; Monocytes # (A) 0.8 k/uL (0-1.0); Monocytes % (A) 6 %; Neutrophils # (A) 7.9 k/uL (1.3-7.7); Neutrophils % (A) 67 %; Platelet Count 262 k/uL (150-450); RBC 5.61 m/uL (4.30-5.90); RDW 14.7 % (11.5-15.5); WBC 11.8 k/uL (3.8-10.6)
[2017-09-26 16:43] LABS: INR 1.1 (<1.2); Partial Thromboplastin Time 23.6 sec (22.0-30.0); Prothrombin Time 10.6 sec (9.0-12.0)
--- NOTE | 2017-09-26 16:52 | XR ---
EXAMINATION TYPE: XR chest 2V DATE OF EXAM: 09/26/2017 COMPARISON: 02/01/2017 HISTORY: Chest pain TECHNIQUE: Frontal and lateral views of the chest are obtained. FINDINGS: Heart is normal. Lungs are clear. There are sternal wires. There are chest leads. There is no heart failure. Bony thorax appears intact. IMPRESSION: No active cardiopulmonary disease. No change.
[2017-09-26 16:55] LABS: Creatine Kinase 35 U/L (55-170)
[2017-09-26 16:57] LABS: ALT 47 U/L (21-72); AST 18 U/L (17-59); Alkaline Phosphatase 78 U/L (38-126); Anion Gap 9 mmol/L; Blood Urea Nitrogen 14 mg/dL (9-20); Calcium 9.6 mg/dL (8.4-10.2); Carbon Dioxide 29 mmol/L (22-30); Chloride 102 mmol/L (98-107); Glucose 87 mg/dL (74-99); Lipase 95 U/L (23-300); Magnesium 1.8 mg/dL (1.6-2.3); Potassium 4.5 mmol/L (3.5-5.1); Sodium 140 mmol/L (137-145); Total Bilirubin 0.6 mg/dL (0.2-1.3); Total Protein 6.9 g/dL (6.3-8.2)
[2017-09-26 17:07] LABS: Creatine Kinase MB 0.7 ng/mL (0.0-2.4); Troponin I <0.012 ng/mL (0.000-0.034)
[2017-09-26 17:43] VITALS: BP 137/85; PULSE 78; TEMP 97.4
== END 2017-09-26 17:46 | disposition home or self-care (01) ==
LOC: EC 15:45
DX: I25.110 Atherosclerotic heart disease of native coronary artery with unstable angina pectoris (principal); I11.9 Hypertensive heart disease without heart failure; F41.9 Anxiety disorder, unspecified; Z95.1 Presence of aortocoronary bypass graft; Z95.5 Presence of coronary angioplasty implant and graft; Z79.899 Other long term (current) drug therapy; Z88.2 Allergy status to sulfonamides
CPT/HCPCS: 36415; 71046; 80053; 82550; 82553; 83690; 83735; 84484; 85025; 85610; 85730; 93005; 99285

== ENCOUNTER 2020-08-17 15:43 | Emergency (ER) | payer BC, MEDICARE ==
[2020-08-17 15:48] VITALS: TEMP 97.6
--- NOTE | 2020-08-17 16:06 | ED ---
General Adult HPI - General Chief complaint: Chest Pain Stated complaint: Neck pain,SOB Time Seen by Provider: 08/17/20 15:50 Source: patient Mode of arrival: ambulatory Limitations: no limitations - History of Present Illness Initial comments: Dictation was produced using [employer] dictation software. please excuse any grammatical, word or spelling errors. This patient was cared for during a federal and state declared state of emergency secondary to Covid 19 Chief Complaint: 60-year-old male presents with fatigue, nasal congestion sh ortness of breath History of Present Illness: 52-year-old male since yesterday's been complaining of fatigue, shortness of breath chest pain. Patient reports that he's been feeling fatigued he's having a nonproductive cough. He also has nasal congestion without rhinorrhea. Patient denies any obvious exposure to anybody with coronavirus. Patient complains of myalgias to the left arm, left anterior chest. Urinalysis worse when he moves his arm. Feels like he has arthritis. Patient denies any constitutional symptoms. He has not had any fevers. Patient has history of recurrent disease and multiple bypasses. The ROS documented in this emergency department record has been reviewed and confirmed by me. Those systems with pertinent positive or negative responses have been documented in the HPI. All other systems are other negative and/or noncontributory. PHYSICAL EXAM: General Impression: Alert and oriented x3, not in acute distress HEENT: Normocephalic atraumatic, extra-ocular movements intact, pupils equal and reactive to light bilaterally, mucous membranes moist. Cardiovascular: Heart regular rate and rhythm Chest: Able to complete full sentences, no retractions, no tachypnea Abdomen: abdomen soft, non-tender, non-distended, no organomegaly Musculoskeletal: Pulses present and equal in all extremities, no peripheral edema Motor: no focal deficits noted Neurological: CN II-XII grossly intact, no focal motor or sensory deficits noted Skin: Intact with no visualized rashes Psych: Normal affect and mood ED course: 60-year-old male presents today with URI type symptoms vital signs upon arrival shows heart rate of 107, rest of vital signs within acceptable limits. Limited evaluation obtained. Mild leuks it was 13.2 with neutrophils 9.7. No lymphocytopenia. Metabolic panel is unremarkable. Rotavirus rapid test is negative. Chest x-ray is nonacute. Patient given Toradol for his myalgias. Patient reevaluated at 5:53 PM stable medical condition. He feels much improved. Patient be discharged. Still told to follow-up with his primary care physician. EKG interpretation: Ventricular rate 113, sinus tachycardia,. Interval 136, QRS 82, QTc 436. No ID prolongation, no QTC prolongation, no ST or T-wave changes noted. EKG compared to Gen. 2017 showing no changes. Overall, this EKG is unremarkable - Related Data Home Medications Medication Instructions Recorded Confirmed ALPRAZolam [Xanax] 1 mg PO BID PRN 02/01/17 08/17/20 Metoprolol Tartrate [Lopressor] 25 mg PO BID 02/01/17 08/17/20 Nitroglycerin 0.4 mg SL Q5M PRN 02/01/17 08/17/20 amLODIPine [Norvasc] 2.5 mg PO DAILY 02/01/17 08/17/20 Nitroglycerin 0.2MG/Hr Patch 1 patch TRANSDERM Q24H PRN 09/26/17 08/17/20 [Nitro-Dur 0.2MG/Hr Patch] Previous Rx's Medication Instructions Recorded Aspirin 325 mg PO DAILY #30 tab 07/26/16 Atorvastatin [Lipitor] 80 mg PO HS #60 tab 07/26/16 Clopidogrel [Plavix] 75 mg PO DAILY #60 tab 07/26/16 Allergies Allergy/AdvReac Type Severity Reaction Status Date / Time Sulfa (Sulfonamide Allergy Unknown Verified 08/17/20 17:03 Antibiotics) Childhood Review of Systems ROS Statement: Those systems with pertinent positive or pertinent negative responses have been documented in the HPI. ROS Other: All systems not noted in ROS Statement are negative. Past Medical History Past Medical History: Coronary Artery Disease (CAD), Chest Pain / Angina, Hyperlipidemia, Hypertension, Sleep Apnea/CPAP/BIPAP Additional Past Medical History / Comment(s): anxiety, colon polyps-neg, tremors, diminished vison lt eye. no cpap used. History of Any Multi-Drug Resistant Organisms: None Reported Past Surgical History: Coronary Bypass/CABG, Heart Catheterization, Heart Catheterization With Stent, Tonsillectomy Additional Past Surgical History / Comment(s): STATES CABG X5, left eye sx " they took the eye out,removed some muscle and put eye back in- sx not sucessfull". Past Anesthesia/Blood Transfusion Reactions: No Reported Reaction Date of Last Stent Placement:: 10/25/16 Past Psychological History: Anxiety, Depression Smoking Status: Never smoker Past Alcohol Use History: None Reported Past Drug Use History: None Reported - Past Family History Father Family Medical History: No Reported History Mother Family Medical History: No Reported History General Exam Limitations: no limitations Course Vital Signs 08/17/20 08/17/20 15:45 17:03 Temperature 97.6 F Pulse Rate 107 H 112 H Respiratory 18 19 Rate Blood Pressure 164/103 151/95 O2 Sat by Pulse 97 97 Oximetry Medical Decision Making - Lab Data Result diagrams: 08/17/20 16:27 08/17/20 16:27 Lab Results 08/17/20 08/17/20 08/17/20 Range/Units 16:26 16:27 16:27 WBC 13.2 H (3.8-10.6) k/uL RBC 5.71 (4.30-5.90) m/uL Hgb 17.8 H (13.0-17.5) gm/dL Hct 50.0 (39.0-53.0) % MCV 87.6 (80.0-100.0) fL MCH 31.2 (25.0-35.0) pg MCHC 35.6 (31.0-37.0) g/dL RDW 13.8 (11.5-15.5) % Plt Count 254 (150-450) k/uL MPV 6.8 Neutrophils % 73 % Lymphocytes % 18 % Monocytes % 4 % Eosinophils % 2 % Basophils % 1 % Neutrophils # 9.7 H (1.3-7.7) k/uL Lymphocytes # 2.4 (1.0-4.8) k/uL Monocytes # 0.6 (0-1.0) k/uL Eosinophils # 0.3 (0-0.7) k/uL Basophils # 0.2 (0-0.2) k/uL Sodium 140 (137-145) mmol/L Potassium 4.0 (3.5-5.1) mmol/L Chloride 108 H (98-107) mmol/L Carbon Dioxide 23 (22-30) mmol/L Anion Gap 9 mmol/L BUN 18 (9-20) mg/dL Creatinine 1.35 H (0.66-1.25) mg/dL Est GFR (CKD-EPI)AfAm 66 (>60 ml/min/1.73 sqM) Est GFR (CKD-EPI)NonAf 57 (>60 ml/min/1.73 sqM) Glucose 188 H (74-99) mg/dL Calcium 9.4 (8.4-10.2) mg/dL Troponin I (0.000-0.034) ng/mL C-Reactive Protein 8.0 (<10.0) mg/L Coronavirus (PCR) Not Detected (Not Detectd) 08/17/20 Range/Units 16:27 WBC (3.8-10.6) k/uL RBC (4.30-5.90) m/uL Hgb (13.0-17.5) gm/dL Hct (39.0-53.0) % MCV (80.0-100.0) fL MCH (25.0-35.0) pg MCHC (31.0-37.0) g/dL RDW (11.5-15.5) % Plt Count (150-450) k/uL MPV Neutrophils % % Lymphocytes % % Monocytes % % Eosinophils % % Basophils % % Neutrophils # (1.3-7.7) k/uL Lymphocytes # (1.0-4.8) k/uL Monocytes # (0-1.0) k/uL Eosinophils # (0-0.7) k/uL Basophils # (0-0.2) k/uL Sodium (137-145) mmol/L Potassium (3.5-5.1) mmol/L Chloride (98-107) mmol/L Carbon Dioxide (22-30) mmol/L Anion Gap mmol/L BUN (9-20) mg/dL Creatinine (0.66-1.25) mg/dL Est GFR (CKD-EPI)AfAm (>60 ml/min/1.73 sqM) Est GFR (CKD-EPI)NonAf (>60 ml/min/1.73 sqM) Glucose (74-99) mg/dL Calcium (8.4-10.2) mg/dL Troponin I <0.012 (0.000-0.034) ng/mL C-Reactive Protein (<10.0) mg/L Coronavirus (PCR) (Not Detectd) Disposition Clinical Impression: Nasal congestion Disposition: HOME SELF-CARE Condition: Good Instructions (If sedation given, give patient instructions): Upper Respiratory Infection (ED) Is patient prescribed a controlled substance at d/c from ED?: No Referrals: Lidya Gonzalez III, MD [Primary Care Provider] - 1-2 days Time of Disposition: 17:54
--- NOTE | 2020-08-17 16:13 | XR ---
EXAMINATION TYPE: XR chest 1V portable DATE OF EXAM: 08/17/2020 COMPARISON: 09/26/2017 HISTORY: Chest pain. Short of breath. TECHNIQUE: FINDINGS: Heart is normal. Lungs are clear of infiltrate. There is no heart failure. There are sterna l wires. There are no hilar masses. Costophrenic angles are clear. IMPRESSION: No active cardiopulmonary disease. Normal heart. No change.
[2020-08-17] MEDS ORDERED: KETOROLAC 15 MG/ML 1 ML VIAL IVP STA (16:57)
[2020-08-17 17:03] VITALS: BP 151/95; PULSE 112; RESP 19
[2020-08-17 17:12] LABS: Basophils # (A) 0.2 k/uL (0-0.2); Basophils % (A) 1 %; Eosinophils # (A) 0.3 k/uL (0-0.7); Eosinophils % (A) 2 %; HGB 17.8 gm/dL (13.0-17.5); Lymphocytes # (A) 2.4 k/uL (1.0-4.8); Lymphocytes % (A) 18 %; MCH 31.2 pg (25.0-35.0); MCHC 35.6 g/dL (31.0-37.0); MCV 87.6 fL (80.0-100.0); Mean Platelet Volume 6.8; Monocytes # (A) 0.6 k/uL (0-1.0); Monocytes % (A) 4 %; Neutrophils # (A) 9.7 k/uL (1.3-7.7); Neutrophils % (A) 73 %; Platelet Count 254 k/uL (150-450); RBC 5.71 m/uL (4.30-5.90); RDW 13.8 % (11.5-15.5); WBC 13.2 k/uL (3.8-10.6)
[2020-08-17 17:22] LABS: Calcium 9.4 mg/dL (8.4-10.2)
== END 2020-08-17 18:14 | disposition home or self-care (01) ==
LOC: EC 15:43
DX: R09.81 Nasal congestion (principal); R07.9 Chest pain, unspecified; R06.02 Shortness of breath; R53.83 Other fatigue; M79.10 Myalgia, unspecified site; I25.119 Atherosclerotic heart disease of native coronary artery with unspecified angina pectoris; I10 Essential (primary) hypertension; G47.30 Sleep apnea, unspecified; F41.9 Anxiety disorder, unspecified; F32.9 Major depressive disorder, single episode, unspecified; Z79.899 Other long term (current) drug therapy; Z88.2 Allergy status to sulfonamides; Z95.1 Presence of aortocoronary bypass graft; Z99.89 Dependence on other enabling machines and devices
CPT/HCPCS: 36415; 93005; 80048; 84484; 85025; 86140; 87635; 71045; 99285; 96374; J1885

== ENCOUNTER → 2022-07-22 | Outpatient (CLI) | payer MEDICARE ==
--- NOTE | 2022-07-22 13:23 | CT ---
EXAMINATION TYPE: CT brain wo con CT DLP: 1054.2 mGycm, Automated exposure control for dose reduction was used. DATE OF EXAM: 07/22/2022 1:17 PM COMPARISON: MRI brain 09/24/2013. CLINICAL INDICATION:Male, 61 years old with history of R42 DIZZINESS, c/o dizziness TECHNIQUE: Brain: Multiple axial CT images of the brain were obtained without IV contrast. Coronal and sagittal reformats reviewed FINDINGS: Brain: Extra-axial spaces: No abnormal extra-axial fluid collections. Ventricular system: Within normal limits Cerebral parenchyma: No acute intraparenchymal hemorrhage or mass effect. The rowe-white junction is well differentiated. Cerebellum: Unremarkable. Mass effect: No evidence of midline shift. Intracranial vasculature: unremarkable Soft tissues: Normal. Calvarium/osseous structures: No depressed skull fracture. Paranasal sinuses and mastoid air cells: Clear Visualized orbits: Orbital contents are intact. IMPRESSION: No acute intracranial process.
== END | disposition home or self-care (01) ==
LOC: RADCTMAIN 12:56
PROVIDERS: ATTEND Family Medicine
DX: A88.1 Epidemic vertigo (principal)
CPT/HCPCS: 70450

== ENCOUNTER 2023-07-19 11:17 | Emergency (ER) | payer MEDICARE ==
[2023-07-19 11:56] VITALS: TEMP 98
--- NOTE | 2023-07-19 11:58 | ED ---
Recheck HPI - General Chief Complaint: Recheck/Abnormal Lab/Rx Stated Complaint: med review Time Seen by Provider: 07/19/23 11:36 Source: patient, RN notes reviewed Mode of arrival: ambulatory Limitations: no limitations - History of Present Illness Initial Comments: This is a 62-year-old male who presents to the emergency department for medication refills. Patient is requesting refills on his metformin and glimepiride, as well as prn Xanax. Patient has been on these medications for several years, and these were previously prescribed by Dr. Gonzalez. However, since his office has closed, he has not been able to get these refilled and he is still trying to find a new primary care provider to refill these for him. MD Complaint: medication refill request - Related Data Home Medications Medication Instructions Recorded Confirmed ALPRAZolam [Xanax] 1 mg PO BID PRN 02/01/17 08/17/20 Metoprolol Tartrate [Lopressor] 25 mg PO BID 02/01/17 08/17/20 Nitroglycerin 0.4 mg SL Q5M PRN 02/01/17 08/17/20 amLODIPine [Norvasc] 2.5 mg PO DAILY 02/01/17 08/17/20 Nitroglycerin 0.2MG/Hr Patch 1 patch TRANSDERM Q24H PRN 09/26/17 08/17/20 [Nitro-Dur 0.2MG/Hr Patch] Previous Rx's Medication Instructions Recorded Aspirin 325 mg PO DAILY #30 tab 07/26/16 Atorvastatin [Lipitor] 80 mg PO HS #60 tab 07/26/16 Clopidogrel [Plavix] 75 mg PO DAILY #60 tab 07/26/16 Glimepiride [Amaryl] 2 mg PO AC-BRKFST #30 tablet 07/19/23 metFORMIN HCL ER [Glucophage XR] 1,500 mg PO DAILY #90 tab 07/19/23 Allergies Allergy/AdvReac Type Severity Reaction Status Date / Time Sulfa (Sulfonamide Allergy Unknown Verified 07/19/23 11:35 Antibiotics) Childhood Review of Systems ROS Statement: Those systems with pertinent positive or pertinent negative responses have been documented in the HPI. ROS Other: All systems not noted in ROS Statement are negative. Past Medical History Past Medical History: Coronary Artery Disease (CAD), Chest Pain / Angina, Hyperlipidemia, Hypertension, Sleep Apnea/CPAP/BIPAP Additional Past Medical History / Comment(s): anxiety, colon polyps-neg, tremors, diminished vison lt eye. no cpap used. History of Any Multi-Drug Resistant Organisms: None Reported Past Surgical History: Coronary Bypass/CABG, Heart Catheterization, Heart Catheterization With Stent, Tonsillectomy Additional Past Surgical History / Comment(s): STATES CABG X5, left eye sx " they took the eye out,removed some muscle and put eye back in- sx not sucessfull". Past Anesthesia/Blood Transfusion Reactions: No Reported Reaction Date of Last Stent Placement:: 10/25/16 Past Psychological History: Anxiety, Depression Smoking Status: Never smoker Past Alcohol Use History: None Reported Past Drug Use History: None Reported - Past Family History Father Family Medical History: No Reported History Mother Family Medical History: No Reported History General Exam Limitations: no limitations General appearance: alert, in no apparent distress Head exam: Present: atraumatic, normocephalic, normal inspection Respiratory exam: Present: normal lung sounds bilaterally. Absent: respiratory distress, wheezes, rales, rhonchi, stridor Cardiovascular Exam: Present: regular rate, normal rhythm, normal heart sounds. Absent: systolic murmur, diastolic murmur, rubs, gallop, clicks Neurological exam: Present: alert, oriented X3, CN II-XII intact Psychiatric exam: Present: normal affect, normal mood Skin exam: Present: warm, dry, intact, normal color. Absent: rash Course Vital Signs 07/19/23 07/19/23 11:32 12:35 Temperature 98 F 98 F Pulse Rate 85 895 H Respiratory 22 18 Rate Blood Pressure 128/81 128/72 O2 Sat by Pulse 100 100 Oximetry Medical Decision Making - Medical Decision Making This is a 62-year-old male who presents to the emergency department for medication refills. Was pt. sent in by a medical professional or institution? @ -No Did you speak to anyone other than the patient for history? @ -No Did you review nursing and triage notes? @ -Yes, and I agree, it is accurate with regards to the patient's symptoms. Were old charts reviewed? @ -No Differential Diagnosis? @ -Not applicable EKG interpreted by me (3pts min.)? @ -Not obtained X-rays interpreted by me (1pt min.)? @ -Not obtained CT interpreted by me (1pt min.)? @ -Not obtained U/S interpreted by me (1pt. min.)? @ -Not obtained What testing was considered but not performed? (CT, X-rays, U/S, labs)? Why? @ -None What meds were considered but not given? Why? @ -None Did you discuss the management of the patient with other professionals? @ -No Did you reconcile home meds? @ -No Was smoking cessation discussed for >3mins.? @ -No Was critical care preformed (if so, how long)? @ -No Were there social determinants of health that impacted care today? How? (Homelessness, low income, unemployed, alcoholism, drug addiction, transportation, low edu. Level, literacy, decrease access to med. care, prison, rehab)? @ -No Was there de-escalation of care discussed even if they declined? (Discuss DNR or withdrawal of care, Hospice)? @ -No What co-morbidities impacted this encounter? (DM, HTN, Smoking, COPD, CAD, Cancer, CVA, Hep., AIDS, mental health diagnosis, sleep apnea, morbid obesity)? @ -DM, anxiety Was patient admitted / discharged? @ -Discharged. I provided the patient with a short-term refill on his requested medications, however I advised that he will need to become established with a primary care provider for ongoing medication management. He was given a list of local primary care providers and discharged home in stable condition. Undiagnosed new problem with uncertain prognosis? @ -None Drug Therapy requiring intensive monitoring for toxicity (Heparin, Nitro, Insul in, Cardizem)? @ -None Were any procedures done? @ -None Diagnosis/symptom? @ -Encounter for medication refill Acute, or Chronic, or Acute on Chronic? @ -Acute Uncomplicated (without systemic symptoms) or Complicated (systemic symptoms)? @ -Uncomplicated Side effects of treatment? @ -None Exacerbation, Progression, or Severe Exacerbation] @ -Not applicable Poses a threat to life or bodily function? @ -No Return precautions reviewed in depth, the patient is instructed to return to the emergency department with any new, worsening, or concerning symptoms. Patient verbalized understanding. This case was discussed in detail with the attending ED physician, Dr. Morgan. Presentation, findings, and treatment plan discussed in detail as well. Disposition Clinical Impression: Encounter for medication refill, Anxiety, Diabetes mellitus Disposition: HOME SELF-CARE Instructions (If sedation given, give patient instructions): Anxiety (ED) Additional Instructions: Return to the emergency department with any new, worsening, or concerning symptoms. Resume taking your medications as prescribed. I have provided a list of local primary care providers. You can contact them to become established for ongoing medication management and medical care. Prescriptions: Glimepiride [Amaryl] 2 mg PO -BRKT #30 tablet metFORMIN HCL ER [Glucophage XR] 1,500 mg PO DAILY #90 tab Is patient prescribed a controlled substance at d/c from ED?: No Referrals: None,Stated [Primary Care Provider] - 1-2 days Forms: [facility]
[2023-07-19 12:46] VITALS: BP 128/72; PULSE 895; RESP 18
== END 2023-07-19 12:37 | disposition home or self-care (01) ==
LOC: EC 11:17
DX: Z76.0 Encounter for issue of repeat prescription (principal); F41.9 Anxiety disorder, unspecified; E11.9 Type 2 diabetes mellitus without complications; I25.10 Atherosclerotic heart disease of native coronary artery without angina pectoris; I10 Essential (primary) hypertension; F32.A Depression, unspecified; Z88.2 Allergy status to sulfonamides; Z79.899 Other long term (current) drug therapy
CPT/HCPCS: 99281